=== PATIENT | female | born 1955 | race Caucasian/White ===

== ENCOUNTER 2017-07-10 19:19 | Emergency (ER) | payer MEDICARE, OTHER ==
[2017-07-10 19:46] VITALS: BP 118/34
[2017-07-10] MEDS ORDERED: Acetaminophen/oxyCODONE 325-5 MG Tab PO ONE (20:08)
--- NOTE | 2017-07-10 20:14 | EDM.PDOC ---
ED HPI GENERAL MEDICAL PROBLEM - General Chief Complaint: Lower Extremity Injury/Pain Stated Complaint: PAIN IN LEFT LEG Time Seen by Provider: 07/10/17 19:55 Source of Information: Reports: Patient, Old Records, RN History Limitations: Reports: No Limitations - History of Present Illness INITIAL COMMENTS - FREE TEXT/NARRATIVE: 62 yo female presents with L groin pain for 2 days that has been progressive. No injury. Has not been to the clinic. Took ibuprofen at 4 pm today without relief. Has pain at rest, but worse with movement. No increase in pain with BM' s. No urinary sx's. 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 (did not help) Left Leg Pain Score (Numeric/FACES): 10 - Related Data Allergies Allergy/AdvReac Type Severity Reaction Status Date / Time phenytoin [From Dilantin] Allergy Bradycardia Verified 07/10/17 19:36 Home Meds: Home Meds ClonazePAM [KlonoPIN] 1 tab PO BID 12/14/15 [History] Folic Acid 1 tab PO DAILY 12/14/15 [History] Gabapentin [Neurontin] 900 mg PO BEDTIME 12/14/15 [History] Levothyroxine [Levothroid] 0.5 tab PO DAILY 12/14/15 [History] QUEtiapine Fumarate [Seroquel] 1 tab PO DAILY 12/14/15 [History] ALPRAZolam [Xanax] 0.5 mg PO Q6H PRN 07/10/17 [History] Aspirin [Low Dose Aspirin EC] 81 mg PO DAILY 07/10/17 [History] Citalopram Hydrobromide [Celexa] 20 mg PO DAILY 07/10/17 [History] QUEtiapine Fumarate [Seroquel] 200 mg PO BEDTIME 07/10/17 [History] atorvaSTATin [Lipitor] 40 mg PO BEDTIME 07/10/17 [History] Past Medical History Cardiovascular History: Reports: High Cholesterol Respiratory History: Reports: PE Gastrointestinal History: Reports: Hiatal Hernia Genitourinary History: Reports: Renal Calculus IOS 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: Musculoskeletal History: Reports: Back Pain, Chronic Psychiatric History: Reports: Anxiety, Bipolar, Panic Attack, PTSD Endocrine/Metabolic History: Reports: Hypoparathyroidism Oncologic (Cancer) History: Reports: Thyroid - Infectious Disease History Infectious Disease History: Reports: Chicken Pox, Measles, Mumps - Past Surgical History GI Surgical History: Reports: Appendectomy, Cholecystectomy Female Surgical History: Reports: Hysterectomy Endocrine Surgical History: Reports: Thyroidectomy Musculoskeletal Surgical History: Reports: Carpal Tunnel, Knee Replacement Social & Family History - Tobacco Use Smoking Status *Q: Current Some Day Smoker Years of Tobacco use: 45 Packs/Tins Daily: 1 Used Tobacco, but Quit: No Second Hand Smoke Exposure: Yes - Caffeine Use Caffeine Use: Reports: Coffee, Soda - Recreational Drug Use Recreational Drug Use: No Review of Systems - Review of Systems Review Of Systems: See Below Constitutional: Reports: No Symptoms Eyes: Reports: No Symptoms Ears: Reports: No Symptoms Nose: Reports: No Symptoms Mouth/Throat: Reports: No Symptoms Respiratory: Reports: No Symptoms Cardiovascular: Reports: No Symptoms GI/Abdominal: Reports: No Symptoms Genitourinary: Reports: No Symptoms Musculoskeletal: Reports: Other (L hip pain) Skin: Reports: No Symptoms Neurological: Reports: No Symptoms Psychiatric: Reports: No Symptoms ED EXAM, GENERAL - Physical Exam Exam: See Below Exam Limited By: No Limitations General Appearance: Alert, WD/WN, Mild Distress Eye Exam: Bilateral Eye: Normal Inspection Ears: Normal External Exam, Normal Canal, Hearing Grossly Normal Ear Exam: Bilateral Ear: Auricle Normal, Canal Normal Nose: Normal Inspection, Normal Mucosa, No Blood Throat/Mouth: Normal Inspection, Normal Lips, Normal Oropharynx, Normal Voice, No Airway Compromise Head: Atraumatic, Normocephalic Neck: Normal Inspection, Supple, Non-Tender Respiratory/Chest: No Respiratory Distress, Lungs Clear, Normal Breath Sounds, No Accessory Muscle Use Cardiovascular: Regular Rate, Rhythm, No Edema GI/Abdominal: Normal Bowel Sounds, Soft, No Distention, Tender (LLQ, no increase with coughing.) Back Exam: Normal Inspection. No: CVA Tenderness (R), CVA Tenderness (L) Extremities: Normal Inspection, Normal Range of Motion, No Pedal Edema, Other ( increased L groin pain with hip ROM or with direct palpation. ). No: Mita's Sign, Limited Range of Motion, Increased Warmth, Redness Neurological: Alert, Oriented, CN II-XII Intact, Normal Cognition, No Motor/ Sensory Deficits Psychiatric: Normal Affect, Normal Mood Skin Exam: Warm, Dry, Intact, Normal Color, No Rash Lymphatic: No Adenopathy Course - Vital Signs Last Recorded V/S: Last Vital Signs Temp 36.3 C 07/10/17 19:52 Pulse 88 07/10/17 19:52 Resp 18 07/10/17 19:52 BP 118/34 L 07/10/17 19:52 Pulse Ox 95 07/10/17 19:52 - Orders/Labs/Meds Orders: Active Orders 24 hr Category Date Time Status Abdomen Pelvis w Cont [CT] Stat Exams 07/10/17 21:07 Taken Hip Min 2V or 3V Lt [CR] Stat Exams 07/10/17 20:07 Taken Iopamidol [Isovue-300 (61%)] Med 07/10/17 21:15 Active 126 ml IV . DIRECTED Sodium Chloride 0.9% [Normal Saline] 80 ml Med 07/10/17 21:15 Active IV ASDIRECTED Sodium Chloride 0.9% [Saline Flush] Med 07/10/17 21:05 Active 10 ml FLUSH ASDIRECTED PRN Medication Orders Sodium Chloride (Normal Saline) 80 mls @ 3 mls/sec IV ASDIRECTED DASHA Last Admin: 07/10/17 21:27 Dose: 3 mls/sec Iopamidol (Isovue-300 (61%)) 126 ml IV . DIRECTED DASHA Last Admin: 07/10/17 21:28 Dose: 126 ml Sodium Chloride (Saline Flush) 10 ml FLUSH ASDIRECTED PRN PRN Reason: Keep Vein Open Last Admin: 07/10/17 21:27 Dose: 10 ml Labs: Laboratory Tests 07/10/17 07/10/17 07/10/17 Range/Units 20:06 20:06 20:06 WBC 7.8 (4.5-11.0) K/uL RBC 3.96 (3.30-5.50) M/uL Hgb 12.5 (12.0-15.0) g/dL Hct 37.9 (36.0-48.0) % MCV 96 (80-98) fL MCH 32 H (27-31) pg MCHC 33 (32-36) % Plt Count 189 (150-400) K/uL D-Dimer, Quantitative 546 H (0.0-400.0) ng/mL Sodium 139 L (140-148) mmol/L Potassium 3.5 L (3.6-5.2) mmol/L Chloride 104 (100-108) mmol/L Carbon Dioxide 27 (21-32) mmol/L Anion Gap 11.5 (5.0-14.0) mmol/L BUN 10 (7-18) mg/dL Creatinine 0.9 (0.6-1.0) mg/dL Est Cr Clr Drug Dosing 62.23 mL/min Estimated GFR (MDRD) > 60 (>60) Glucose 97 (74-106) mg/dL Calcium 8.6 (8.5-10.1) mg/dL C-Reactive Protein (0.0-0.3) mg/dL 07/10/17 Range/Units 20:06 WBC (4.5-11.0) K/uL RBC (3.30-5.50) M/uL Hgb (12.0-15.0) g/dL Hct (36.0-48.0) % MCV (80-98) fL MCH (27-31) pg MCHC (32-36) % Plt Count (150-400) K/uL D-Dimer, Quantitative (0.0-400.0) ng/mL Sodium (140-148) mmol/L Potassium (3.6-5.2) mmol/L Chloride (100-108) mmol/L Carbon Dioxide (21-32) mmol/L Anion Gap (5.0-14.0) mmol/L BUN (7-18) mg/dL Creatinine (0.6-1.0) mg/dL Est Cr Clr Drug Dosing mL/min Estimated GFR (MDRD) (>60) Glucose (74-106) mg/dL Calcium (8.5-10.1) mg/dL C-Reactive Protein 1.57 H (0.0-0.3) mg/dL Meds: Medications Generic Name Dose Route Start Last Admin Trade Name Freq PRN Reason Stop Dose Admin Sodium Chloride 80 mls @ 3 mls/sec 07/10/17 21:15 07/10/17 21:27 Normal Saline IV 3 mls/sec ASDIRECTED DASHA Administration Iopamidol 126 ml 07/10/17 21:15 07/10/17 21:28 Isovue-300 (61%) IV 126 ml . DIRECTED DASHA Administration Sodium Chloride 10 ml 07/10/17 21:05 07/10/17 21:27 Saline Flush FLUSH 10 ml ASDIRECTED PRN Administration Keep Vein Open Discontinued Medications Generic Name Dose Route Start Last Admin Trade Name Zachary PRN Reason Stop Dose Admin Bisacodyl 10 mg 07/10/17 20:31 07/10/17 20:40 Dulcolax RECTAL 07/10/17 20:32 10 mg ONETIME ONE Administration Oxycodone/Acetaminophen 1 tab 07/10/17 20:08 07/10/17 20:31 Percocet 325-5 Mg PO 07/10/17 20:09 1 tab ONETIME ONE Administration Polyethylene Glycol 34 gm 07/10/17 20:31 07/10/17 20:40 Miralax PO 07/10/17 20:32 34 gm ONETIME ONE Administration - Radiology Interpretation Free Text/Narrative:: L hip X-ray-no bony pathology, increased stool CT abd/pelvis-large stool only, otherwise neg CT Results Date: 07/10/17 CT Results Time: 21:50 Departure - Departure Time of Disposition: 22:03 Disposition: Home, Self-Care 01 Condition: Good Clinical Impression: Left groin pain Constipation Qualifiers: Constipation type: slow transit constipation Qualified Code(s): K59.01 - Slow transit constipation - Discharge Information Referrals: Lazaro Virgen MD [Primary Care Provider] - Forms: ED Department Discharge - My Orders Last 24 Hours: My Active Orders 07/10/17 20:07 Hip Min 2V or 3V Lt [CR] Stat 07/10/17 21:05 Sodium Chloride 0.9% [Saline Flush] 10 ml FLUSH ASDIRECTED PRN 07/10/17 21:07 Abdomen Pelvis w Cont [CT] Stat 07/10/17 21:15 Iopamidol [Isovue-300 (61%)] 126 ml IV . DIRECTED Sodium Chloride 0.9% [Normal Saline] 80 ml IV ASDIRECTED - Assessment/Plan Last 24 Hours: My Active Orders 07/10/17 20:07 Hip Min 2V or 3V Lt [CR] Stat 07/10/17 21:05 Sodium Chloride 0.9% [Saline Flush] 10 ml FLUSH ASDIRECTED PRN 07/10/17 21:07 Abdomen Pelvis w Cont [CT] Stat 07/10/17 21:15 Iopamidol [Isovue-300 (61%)] 126 ml IV . DIRECTED Sodium Chloride 0.9% [Normal Saline] 80 ml IV ASDIRECTED
[2017-07-10] MEDS ORDERED: Polyethylene Glycol 3350 Powder 17 GM Packet PO ONE (20:31)
[2017-07-10] MEDS ORDERED: Bisacodyl 10 MG Supp RECTAL ONE (20:31)
[2017-07-10] MEDS ORDERED: Sodium Chloride 0.9% 10 ML Syringe FLUSH PRN (21:05)
[2017-07-10] MEDS ORDERED: Sodium Chloride 0.9% 80 ML IV SCH (21:15)
[2017-07-10] MEDS ORDERED: Iopamidol 612 MG/ML 150 ML Bottle IV SCH (21:15)
--- NOTE | 2017-07-13 09:17 | CR ---
Left hip There is mild joint space loss superiorly. There is normal alignment. There is no fracture. The soft tissues are unremarkable. Impression: 1. Mild degenerative findings of the hip.
== END 2017-07-10 22:28 | disposition home or self-care (01) ==
LOC: JP.ED 19:19
DX: K59.01 Slow transit constipation (principal); R10.32 Left lower quadrant pain; E78.00 Pure hypercholesterolemia, unspecified; F41.9 Anxiety disorder, unspecified; F31.9 Bipolar disorder, unspecified; F17.210 Nicotine dependence, cigarettes, uncomplicated; Z88.8 Allergy status to other drugs, medicaments and biological substances; Z79.899 Other long term (current) drug therapy; Z79.82 Long term (current) use of aspirin
CPT/HCPCS: 36415; 73502; 74177; 80048; 85027; 85379; 86140; 99284; A9270; J7030; J7050

== ENCOUNTER 2017-10-09 18:23 | Emergency (ER) | payer MEDICARE, OTHER ==
[2017-10-09] MEDS ORDERED: Ketorolac 30 MG/ML SDV IM ONE (20:28)
[2017-10-09] MEDS ORDERED: HYDROmorphone 1 MG/ML Syringe IM ONE (20:28)
[2017-10-09 21:40] VITALS: BP 113/49
--- NOTE | 2017-10-09 22:37 | EDM.PDOC ---
ED HPI GENERAL MEDICAL PROBLEM - General Chief Complaint: Headache Stated Complaint: MIGRAINE Time Seen by Provider: 10/09/17 20:17 Source of Information: Reports: Patient History Limitations: Reports: No Limitations - History of Present Illness INITIAL COMMENTS - FREE TEXT/NARRATIVE: This woman complains of a headache to the right shinto area and into the rt eye for 5 days. 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 Her doc just said to take ibf but it didn't help. No visual changes. No other symptoms except shinto area very tender. Occassional blurry vision. headache Pain Score (Numeric/FACES): 10 - Related Data Allergies Allergy/AdvReac Type Severity Reaction Status Date / Time phenytoin [From Dilantin] Allergy Bradycardia Verified 10/09/17 18:39 Home Meds: Home Meds ClonazePAM [KlonoPIN] 1 tab PO BID 12/14/15 [History] Folic Acid 1 tab PO DAILY 12/14/15 [History] Gabapentin [Neurontin] 900 mg PO BEDTIME 12/14/15 [History] Levothyroxine [Levothroid] 0.5 tab PO ASDIRECTED 12/14/15 [History] ALPRAZolam [Xanax] 0.5 mg PO DAILY PRN 07/10/17 [History] Aspirin [Low Dose Aspirin EC] 81 mg PO DAILY 07/10/17 [History] Citalopram Hydrobromide [Celexa] 20 mg PO DAILY 07/10/17 [History] QUEtiapine Fumarate [Seroquel] 200 mg PO BEDTIME 07/10/17 [History] atorvaSTATin [Lipitor] 40 mg PO BEDTIME 07/10/17 [History] Omeprazole 20 mg PO DAILY 10/09/17 [History] Polyethylene Glycol 3350 [MiraLAX] 17 gm PO DAILY 10/09/17 [History] Past Medical History Cardiovascular History: Reports: High Cholesterol Respiratory History: Reports: PE Gastrointestinal History: Reports: Hiatal Hernia Genitourinary History: Reports: 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: Musculoskeletal History: Reports: Back Pain, Chronic Psychiatric History: Reports: Anxiety, Bipolar, Panic Attack, PTSD Endocrine/Metabolic History: Reports: Hypothyroidism Oncologic (Cancer) History: Reports: Thyroid - Infectious Disease History Infectious Disease History: Reports: Chicken Pox, Measles, Mumps - Past Surgical History GI Surgical History: Reports: Appendectomy, Cholecystectomy Female Surgical History: Reports: Hysterectomy Endocrine Surgical History: Reports: Thyroidectomy Musculoskeletal Surgical History: Reports: Carpal Tunnel, Knee Replacement Social & Family History - Tobacco Use Smoking Status *Q: Current Every Day Smoker Years of Tobacco use: 20 Packs/Tins Daily: 0.5 - Caffeine Use Caffeine Use: Reports: Coffee, Soda - Recreational Drug Use Recreational Drug Use: No ED ROS GENERAL - Review of Systems Review Of Systems: ROS reveals no pertinent complaints other than HPI. - Physical Exam Exam: See Below Exam Limited By: No Limitations General Appearance: Alert, WD/WN, Mild Distress Eye Exam: Bilateral Eye: EOMI, PERRL, Other (tunnel vision bilaterally) Ears: Normal External Exam, Normal Canal, Normal TMs Nose: Normal Inspection Throat/Mouth: Normal Inspection Head Exam: Atraumatic, Other (sever tenderness to right temporal artery.) Neck: Normal Inspection Neuro Exam (Abbreviated): Alert, Oriented, CN II-XII Intact, Normal Cognition, No Motor/Sensory Deficits Extremities: Normal Inspection Skin Exam: Warm, Dry Course - Vital Signs Last Recorded V/S: Last Vital Signs Temp 36.3 C 10/09/17 18:38 Pulse 64 10/09/17 21:39 Resp 16 10/09/17 21:39 BP 113/49 L 10/09/17 21:39 Pulse Ox 93 L 10/09/17 21:39 - Orders/Labs/Meds Labs: Laboratory Tests 10/09/17 10/09/17 10/09/17 Range/Units 20:45 20:45 20:45 WBC 8.7 (4.5-11.0) K/uL RBC 4.20 (3.30-5.50) M/uL Hgb 13.2 (12.0-15.0) g/dL Hct 39.3 (36.0-48.0) % MCV 94 (80-98) fL MCH 31 (27-31) pg MCHC 34 (32-36) % Plt Count 220 (150-400) K/uL Neut % (Auto) 58 (36-66) % Lymph % (Auto) 33 (24-44) % [place] % (Auto) 8 H (2-6) % Eos % (Auto) 1 L (2-4) % Baso % (Auto) 0 (0-1) % ESR (0-25) mm/hr Sodium 139 L (140-148) mmol/L Potassium 4.0 (3.6-5.2) mmol/L Chloride 103 (100-108) mmol/L Carbon Dioxide 25 (21-32) mmol/L Anion Gap 15.0 H (5.0-14.0) mmol/L BUN 16 D (7-18) mg/dL Creatinine 1.1 H (0.6-1.0) mg/dL Est Cr Clr Drug Dosing 50.91 mL/min Estimated GFR (MDRD) 51 L (>60) Glucose 91 (74-106) mg/dL Calcium 8.8 (8.5-10.1) mg/dL Total Bilirubin 0.3 (0.2-1.0) mg/dL AST 17 (15-37) U/L ALT 17 (12-78) U/L Alkaline Phosphatase 123 H (46-116) U/L C-Reactive Protein 1.03 H (0.0-0.3) mg/dL Total Protein 7.1 (6.4-8.2) g/dL Albumin 3.2 L (3.4-5.0) g/dL Globulin 3.9 H (2.3-3.5) g/dL Albumin/Globulin Ratio 0.8 L (1.2-2.2) 10/09/17 Range/Units 20:45 WBC (4.5-11.0) K/uL RBC (3.30-5.50) M/uL Hgb (12.0-15.0) g/dL Hct (36.0-48.0) % MCV (80-98) fL MCH (27-31) pg MCHC (32-36) % Plt Count (150-400) K/uL Neut % (Auto) (36-66) % Lymph % (Auto) (24-44) % [place] % (Auto) (2-6) % Eos % (Auto) (2-4) % Baso % (Auto) (0-1) % ESR 43 H (0-25) mm/hr Sodium (140-148) mmol/L Potassium (3.6-5.2) mmol/L Chloride (100-108) mmol/L Carbon Dioxide (21-32) mmol/L Anion Gap (5.0-14.0) mmol/L BUN (7-18) mg/dL Creatinine (0.6-1.0) mg/dL Est Cr Clr Drug Dosing mL/min Estimated GFR (MDRD) (>60) Glucose (74-106) mg/dL Calcium (8.5-10.1) mg/dL Total Bilirubin (0.2-1.0) mg/dL AST (15-37) U/L ALT (12-78) U/L Alkaline Phosphatase (46-116) U/L C-Reactive Protein (0.0-0.3) mg/dL Total Protein (6.4-8.2) g/dL Albumin (3.4-5.0) g/dL Globulin (2.3-3.5) g/dL Albumin/Globulin Ratio (1.2-2.2) Meds: Medications Discontinued Medications Generic Name Dose Route Start Last Admin Trade Name Freq PRN Reason Stop Dose Admin Hydromorphone HCl 1 mg 10/09/17 20:28 10/09/17 21:40 Dilaudid IM 10/09/17 20:29 1 mg ONETIME ONE Administration Ketorolac Tromethamine 30 mg 10/09/17 20:28 10/09/17 21:40 Toradol IM 10/09/17 20:29 30 mg ONETIME ONE Administration - Re-Assessments/Exams Free Text/Narrative Re-Assessment/Exam: 10/09/17 22:[address] Pastora Uriostegui will do temporal artery biopsy in am. Departure - Departure Time of Disposition: 22:32 Disposition: Home, Self-Care 01 Condition: Serious Clinical Impression: Temporal arteritis - Discharge Information Instructions: Temporal Arteritis Referrals: PCP,None [Primary Care Provider] - Forms: ED Department Discharge Additional Instructions: You may have Temporal Arteritis. This is an inflammation of the arteries which can cause some serious problems such as blindness. You will need to come to the hospital tomorrow at 8 am on an empty stomach. Dr Uriostegui will do a temporal artery biopsy to help with the diagnosis. You will need to take prednisone 40 mg daily for 2-4 weeks or longer and your doctor will need to manage this. Plane to see your doctor early this coming week. You should get an eye exam on thursday to check for inflamed arteries of the retina. Also note tunnel vision. For pain, use the [place] 5/325. It may cause sedation and impair driving.
== END 2017-10-09 22:48 | disposition home or self-care (01) ==
LOC: JP.ED 18:23
DX: I77.6 Arteritis, unspecified (principal); E78.00 Pure hypercholesterolemia, unspecified; F31.9 Bipolar disorder, unspecified; E03.9 Hypothyroidism, unspecified; F17.210 Nicotine dependence, cigarettes, uncomplicated; Z88.8 Allergy status to other drugs, medicaments and biological substances; Z79.899 Other long term (current) drug therapy; Z79.82 Long term (current) use of aspirin
CPT/HCPCS: 36415; 80053; 85025; 85651; 86140; 96372; 99284; J1170; J1885

== ENCOUNTER 2017-10-10 06:37 | Day surgery (SDC) | payer MEDICARE, OTHER ==
[2017-10-10] MEDS: ceFAZolin 1 GM in Premix Bag 1 BAG IV ONE (07:55)
[2017-10-10] MEDS ORDERED: Midazolam 1 MG/ML 2 ML SDV ONE (07:56)
[2017-10-10] MEDS ORDERED: fentaNYL 100 MCG/2 ML SDV ONE (07:56)
[2017-10-10] MEDS ORDERED: Propofol 200 MG/20 ML SDV ONE ×2 (07:56→08:33)
[2017-10-10] MEDS: Bacitracin Oint 1 GM U/D Packet ONE (08:41)
[2017-10-10] MEDS: Bupivacaine 0.5% 50 ML MDV ONE (08:41)
[2017-10-10] MEDS: Lidocaine 1% with EPINEPHrine 1:100,000 50 ML MDV ONE (08:42)
[2017-10-10 10:17] VITALS: BP 100/61
--- NOTE | 2017-10-11 14:31 | OR ---
DATE OF PROCEDURE: 10/10/2017 PREOPERATIVE DIAGNOSIS: Rule out temporal arteritis. POSTOPERATIVE DIAGNOSIS: Rule out temporal arteritis. OPERATIVE PROCEDURE: Bilateral temporal artery biopsies (16125 x2). ANESTHESIA: Local plus IV sedation. INDICATION FOR PROCEDURE: This is a 62-year-old presenting to the emergency room last evening with a headache in the right spiritism area radiating to the eye. This has been present for around 5 days associated with some intermittent blurry vision. The patient was started on prednisone 40 mg a day and was set up for bilateral temporal artery biopsy this morning. Potential risks of the procedure including bleeding, infection, some cosmetic deformity related to the incisions were reviewed, and the patient wishes to proceed. DETAILS OF PROCEDURE: The patient was taken to the operating room and after IV sedation, using a Doppler, the course of the temporal arteries beginning just above the ureter on each side were marked out and all areas were prepped and draped, and anesthetized with 1% lidocaine mixed with Marcaine. A 3.5 to 4 cm incision was then made initially on the right side and continued down through the skin and subcutaneous tissues. The artery was then identified and a roughly 3.5-cm length artery was then excised with the remaining ends being suture ligated with 4-0 Vicryl stitch. Incision was then closed with some 4-0 Vicryl stitch deep and a 5-0 Vicryl subcuticular stitch. An identical excision was then accomplished on the left side and closure was as per the right side as well. The artery on the right side did appear to be somewhat edematous compared to the one on the left, suggestive of possible temporal arteritis. Pathology on this is obviously pending. After completion of the closures, both incisions were sealed with some glue, and the patient was taken to the recovery room in a satisfactory condition. The patient will be instructed to seek ophthalmologic examination on Thursday and is set up to see her personal physician, Dr. Lazaro Virgen in [place] later this week. We will forward the reports including the pathology report by Dr. Virgen as it becomes available. The patient will be continuing the prednisone 40 mg a day in the interim. Toby Uriostegui MD /[id number]
== END 2017-10-10 11:27 | disposition home or self-care (01) ==
LOC: JP.SDS 06:37
PROVIDERS: ATTEND Surgery
DX: R51 Headache (principal); F17.210 Nicotine dependence, cigarettes, uncomplicated; E78.00 Pure hypercholesterolemia, unspecified; F41.9 Anxiety disorder, unspecified; F31.9 Bipolar disorder, unspecified; E03.9 Hypothyroidism, unspecified; Z79.82 Long term (current) use of aspirin; Z79.899 Other long term (current) drug therapy; Z88.8 Allergy status to other drugs, medicaments and biological substances
CPT/HCPCS: 37609; J0690; J2250; J2704; J3010; J3490; 88305; 88313

== ENCOUNTER 2023-02-26 16:07 | Emergency (ER) | payer MEDICARE, BC, OTHER ==
[2023-02-26 17:00] LABS: BASOPHILS ABSOLUTE AUTO 0.03 K/uL (0.00-0.10); BASOPHILS PERCENT AUTO 0.4 % (0.1-1.3); EOSINOPHILS PERCENT AUTO 1.4 % (0.0-5.4); HEMATOCRIT 36.6 % (34.3-46.0); HEMOGLOBIN 12.1 g/dL (11.2-15.5); IMMATURE GRAN PERCENT AUTO 0.3 % (0.0-0.7); LYMPHOCYTES ABSOLUTE AUTO 2.38 K/uL (0.8-3.3); LYMPHOCYTES PERCENT AUTO 32.6 % (11.4-47.7); MEAN CORPUSCULAR HEMOGLOBIN 31.1 pg (31.6-35.5); MEAN CORPUSCULAR HGB CONC 33.1 g/dL (31.6-35.5); MEAN CORPUSCULAR VOLUME 94.1 fL (81.4-99.0); MONOCYTES ABSOLUTE AUTO 0.72 K/uL (0.20-0.90); MONOCYTES PERCENT AUTO 9.8 % (3.3-12.6); NEUTROPHILS ABSOLUTE AUTO 4.06 K/uL (1.0-7.6); NEUTROPHILS PERCENT AUTO 55.5 % (40.0-78.1); PLATELET COUNT,PLT 215 K/uL (130-375); RED BLOOD CELL COUNT 3.89 M/uL (3.77-5.24); WHITE BLOOD CELL COUNT,WBC 7.3 K/uL (3.2-11.0)
[2023-02-26 17:01] LABS: IMMATURE GRAN ABSOLUTE AUTO 0.02 K/uL (0.00-0.23)
[2023-02-26] MEDS: Sodium Chloride 0.9% 1,000 ML IV SCH (17:07)
[2023-02-26 17:11] LABS: APPEARANCE,URINE SLIGHTLY CLOUDY (CLEAR); BILIRUBIN,URINE NEGATIVE (NEGATIVE); COLOR,URINE YELLOW (YELLOW); GLUCOSE,URINE 250 mg/dL (NEGATIVE); KETONES,URINE NEGATIVE (NEGATIVE); LEUKOCYTE ESTERASE,URINE NEGATIVE (NEGATIVE); NITRITE,URINE NEGATIVE (NEGATIVE); OCCULT BLOOD,URINE TRACE-LYSED (NEGATIVE); PROTEIN,URINE NEGATIVE (NEGATIVE); UROBILINOGEN,URINE 0.2 EU/dL (0.2-1.0)
[2023-02-26 17:12] LABS: BACTERIA,URINE FEW; EPITHELIAL CELLS,URINE FEW; WBC,URINE 0-5 (0-5)
[2023-02-26 17:13] LABS: AMORPHOUS SEDIMENT,URINE NOT SEEN; MUCUS,URINE MODERATE
[2023-02-26 17:20] LABS: A/G RATIO 0.8 (1.2-2.2); ALANINE AMINOTRANSFERASE,ALT 26 U/L (12-78); ALBUMIN 3.1 g/dL (3.4-5.0); ALKALINE PHOSPHATASE 108 U/L (46-116); ASPARTATE AMNIOTRANSFERASE,AST 17 U/L (15-37); BILIRUBIN TOTAL 0.2 mg/dL (0.2-1.0); BLOOD UREA NITROGEN,BUN 14 mg/dL (7-18); CALCIUM 8.4 mg/dL (8.5-10.1); CARBON DIOXIDE,CO2 26 mmol/L (21-32); CHLORIDE,CL 107 mmol/L (100-108); ESTIMATED GFR 63 mL/min (>60); GLUCOSE RANDOM 77 mg/dL (74-106); POTASSIUM,K 3.8 mmol/L (3.6-5.2); PROTEIN TOTAL,TP 6.8 g/dL (6.4-8.2); SODIUM,NA 138 mmol/L (140-148)
[2023-02-26 17:22] LABS: ANION GAP 8.8 mmol/L (5.0-14.0)
[2023-02-26 17:36] LABS: INFLUENZA A NAA NEGATIVE (NEGATIVE); INFLUENZA B NAA NEGATIVE (NEGATIVE); RESPIRATORY SYNCYTIAL VIR NAA NEGATIVE (NEGATIVE)
[2023-02-26 17:38] LABS: CORONAVIRUS COVID-19 NAA POSITIVE (NEGATIVE)
[2023-02-26] MEDS: Sodium Chloride 0.9% 10 ML Syringe FLUSH ONE (17:49)
[2023-02-26] MEDS: Iopamidol 755 Mg/ML 100 ML Bottle IV SCH (17:49)
[2023-02-26] MEDS: Sodium Chloride 0.9% 75 ML IV SCH (17:49)
[2023-02-26 18:40] VITALS: BP 131/68; PULSE 65
== END 2023-02-26 18:41 | disposition home or self-care (01) ==
LOC: JP.ED 16:07
DX: U07.1 COVID-19 (principal); R07.89 Other chest pain; Z20.822 Contact with and (suspected) exposure to COVID-19; Z72.0 Tobacco use; E78.00 Pure hypercholesterolemia, unspecified; K21.9 Gastro-esophageal reflux disease without esophagitis; Z86.16 Personal history of COVID-19; Z79.82 Long term (current) use of aspirin; Z88.8 Allergy status to other drugs, medicaments and biological substances
CPT/HCPCS: 0241U; 36415; 71275; 80053; 81001; 83690; 84484; 85025; 93005; 99284; J3490; J7030; Q9967